=== PATIENT | male | born 1970 | race African-American/Black ===

== ENCOUNTER 2017-09-28 14:28 | Inpatient (IN) | payer BC ==
[~2017-09-28] VITALS: Ht 185.4 cm; Wt 113.2 kg
[2017-09-28 14:57] LABS: HEMATOCRIT 48.7 % (38.0-50.0); HEMOGLOBIN 17.3 G/DL (12.5-16.6); MCHC 35.5 G/DL (30.0-36.0); PLATELET COUNT 244 K/uL (156-360); RBC DIS.WIDTH-CV 12.1 % (11.8-14.6); RBC DIS.WIDTH-SD 39.8 % (39-53); RED BLOOD COUNT 5.41 M/uL (4.00-5.50); WHITE BLOOD COUNT 6.5 K/uL (4.1-10.2)
[2017-09-28 15:24] LABS: TROP-I INTERPRETATION NEGATIVE; TROPONIN-I < 0.01 ng/mL (0.0-0.30)
[2017-09-28 15:30] LABS: CHLORIDE 99 mEq/L (99-109); POTASSIUM 4.3 mEq/L (3.7-5.4); SODIUM 135 mEq/L (136-147)
[2017-09-28 15:31] LABS: GLUCOSE 106 mg/dL (70-99)
[2017-09-28 15:36] LABS: UREA NITROGEN (BUN) 15 mg/dL (9-23)
[2017-09-28 15:42] LABS: GFR ESTIMATE (CALCULATED) > 59 mL/min/ (58.99-99999)
[2017-09-28 15:44] LABS: CK-MB 14.4 ng/mL (0.0-4.9)
[2017-09-28 16:31] LABS: APPEARANCE CLEAR ((CLEAR)); BILIRUBIN NEGATIVE; BLOOD LARGE; COLOR YELLOW ((YELLOW)); GLUCOSE (STRIP) NEGATIVE; KETONES NEGATIVE; LEUKOCYTES NEGATIVE; NITRITE NEGATIVE; PROTEIN (STRIP) 100; SPECIFIC GRAVITY 1.006 (1.000-1.030); UROBILINOGEN 0.2 MG/DL (0.2-1.0)
[2017-09-28 16:37] LABS: BACTERIA NONE SEEN /HPF; EPITHELIAL CELLS NONE SEEN /HPF; MUCUS NONE SEEN /LPF; RED BLOOD CELLS 0-5 /HPF (0-5); WHITE BLOOD CELLS 0-5 /HPF (0-5)
[2017-09-28 19:09] LABS: CREATINE KINASE 91930 IU/L (1-294)
[2017-09-28 19:27] LABS: TOTAL CK 91930 IU/L (1-294)
[2017-09-28] MEDS ORDERED: ADVIL,NUPRIN,M200 MG PO (19:55)
[2017-09-28 23:19] VITALS: BP 131/68
[2017-09-29 03:38] VITALS: BP 126/63
[2017-09-29 05:42] LABS: HEMATOCRIT 42.8 % (38.0-50.0); MCH 30.6 PG (29.0-34.0); MCHC 33.4 G/DL (30.0-36.0); MCV 91.5 FL (86-99); PLATELET COUNT 234 K/uL (156-360); RBC DIS.WIDTH-CV 12.2 % (11.8-14.6); RBC DIS.WIDTH-SD 41.3 % (39-53); RED BLOOD COUNT 4.68 M/uL (4.00-5.50); WHITE BLOOD COUNT 6.4 K/uL (4.1-10.2)
[2017-09-29 05:44] LABS: HEMOGLOBIN 14.3 G/DL (12.5-16.6)
[2017-09-29 07:00] LABS: CREATINE KINASE > 100000 IU/L (1-294)
[2017-09-29 07:02] LABS: CHLORIDE 105 MEQ/L (99-109); CREATININE 1.1 MG/DL (0.6-1.3); GFR ESTIMATE (CALCULATED) > 59 mL/min/ (58.99-99999); GLUCOSE 96 mg/dL (70-99); POTASSIUM 4.1 MEQ/L (3.7-5.4); SODIUM 138 MEQ/L (136-147); UREA NITROGEN (BUN) 16 mg/dL (9-23)
[2017-09-29 09:01] VITALS: BP 122/61
[2017-09-29 11:43] VITALS: BP 133/63
[2017-09-29 15:21] VITALS: BP 121/59
[2017-09-29 19:52] VITALS: BP 122/58
[2017-09-29 23:43] VITALS: BP 124/68
[2017-09-30] VITALS (7 sets, daily range): BP systolic 93–129; BP diastolic 52–68
[2017-09-30 06:17] LABS: BASOPHIL (%) 0.6 % (0-1); EOSINOPHIL (%) 1.6 % (0-5); EOSINOPHIL COUNT 0.1 K/uL (0-0.3); HEMATOCRIT 39.8 % (38.0-50.0); HEMOGLOBIN 13.5 G/DL (12.5-16.6); IMMATURE GRANULOCYTE (%) 0.4 % (0.0-0.7); LYMPHOCYTE (%) 25.7 % (15-42); LYMPHOCYTE COUNT 1.3 K/uL (1.0-2.8); MCH 31.6 PG (29.0-34.0); MCHC 33.9 G/DL (30.0-36.0); MCV 93.2 FL (86-99); MONOCYTE (%) 5.5 % (3-12); MONOCYTE COUNT 0.3 K/uL (0-0.8); NEUTROPHIL (%) 66.2 % (45-76); NEUTROPHIL COUNT 3.4 K/uL (1.8-6.4); PLATELET COUNT 211 K/uL (156-360); RBC DIS.WIDTH-CV 12.3 % (11.8-14.6); RBC DIS.WIDTH-SD 42.4 % (39-53); RED BLOOD COUNT 4.27 M/uL (4.00-5.50); WHITE BLOOD COUNT 5.1 K/uL (4.1-10.2)
[2017-09-30 06:38] LABS: ALBUMIN 2.9 G/DL (3.2-4.8); ALKALINE PHOSPHATASE 46 IU/L (3-129); ALT (GPT) 331 IU/L (3-49); AST (GOT) 850 IU/L (2-34); CHLORIDE 109 MEQ/L (99-109); CREATININE 1.1 MG/DL (0.6-1.3); GFR ESTIMATE (CALCULATED) > 59 mL/min/ (58.99-99999); GLUCOSE 96 mg/dL (70-99); POTASSIUM 4.4 MEQ/L (3.7-5.4); SODIUM 140 MEQ/L (136-147); TOTAL BILIRUBIN 0.3 MG/DL (0.0-1.0); TOTAL PROTEIN 4.9 G/DL (6.4-8.3); UREA NITROGEN (BUN) 11 mg/dL (9-23)
[2017-09-30 08:48] LABS: CREATINE KINASE > 100000 IU/L (1-294)
[2017-09-30 11:52] LABS: HEPATITIS B SURFACE ANTIGEN Nonreactive
[2017-09-30 11:53] LABS: HEPATITIS C ANTIBODY Nonreactive
[2017-09-30 11:54] LABS: ANTI-HEPATITIS A VIRUS (IGM) Nonreactive
[2017-09-30 11:55] LABS: ANTI-HEPATITIS B CORE (IGM) Nonreactive
[2017-10-01 06:16] LABS: HEMATOCRIT 41.1 % (38.0-50.0); HEMOGLOBIN 13.7 G/DL (12.5-16.6); MCH 31.1 PG (29.0-34.0); MCHC 33.3 G/DL (30.0-36.0); MCV 93.2 FL (86-99); PLATELET COUNT 217 K/uL (156-360); RBC DIS.WIDTH-CV 12.1 % (11.8-14.6); RBC DIS.WIDTH-SD 41.9 % (39-53); RED BLOOD COUNT 4.41 M/uL (4.00-5.50); WHITE BLOOD COUNT 5.5 K/uL (4.1-10.2)
[2017-10-01 06:38] LABS: ALBUMIN 2.8 G/DL (3.2-4.8); ALKALINE PHOSPHATASE 45 IU/L (3-129); ALT (GPT) 314 IU/L (3-49); AST (GOT) 679 IU/L (2-34); CHLORIDE 105 MEQ/L (99-109); CREATININE 1.2 MG/DL (0.6-1.3); GFR ESTIMATE (CALCULATED) > 59 mL/min/ (58.99-99999); GLUCOSE 87 mg/dL (70-99); POTASSIUM 4.5 MEQ/L (3.7-5.4); SODIUM 140 MEQ/L (136-147); UREA NITROGEN (BUN) 13 mg/dL (9-23)
[2017-10-01 06:41] LABS: TOTAL BILIRUBIN 0.4 MG/DL (0.0-1.0)
[2017-10-01 06:42] LABS: INTER. NORMALIZED RATIO 0.9
[2017-10-01 11:07] LABS: HDL CHOLESTEROL 35 MG/DL (Desirable>=40); LDL CHOLESTEROL 110 mg/dL (Desirable<100); NON-HDL CHOLESTEROL 128 mg/dL (Desirable<160); TOTAL CHOLESTEROL 163 mg/dL (Desirable<200); TRIGLYCERIDES 92 MG/DL (Normal: <150)
[2017-10-01 11:09] LABS: CREATINE KINASE 60900 IU/L (1-294)
[2017-10-01 14:20] VITALS: BP 123/66
[2017-10-01 15:49] VITALS: BP 141/68
[2017-10-01 15:54] VITALS: BP 144/67
[2017-10-01 20:25] VITALS: BP 142/70
[2017-10-02 00:19] VITALS: BP 115/58
[2017-10-02 07:06] LABS: ALBUMIN 2.8 G/DL (3.2-4.8); ALKALINE PHOSPHATASE 40 IU/L (3-129); ALT (GPT) 284 IU/L (3-49); AST (GOT) 518 IU/L (2-34); DIRECT BILIRUBIN 0.1 mg/dL (0.0-0.3); TOTAL PROTEIN 4.9 G/DL (6.4-8.3)
[2017-10-02 07:08] LABS: TOTAL BILIRUBIN 0.3 MG/DL (0.0-1.0)
[2017-10-02 10:04] LABS: CREATINE KINASE 38800 IU/L (1-294)
[2017-10-02 11:17] VITALS: BP 118/60
[2017-10-02 15:47] VITALS: BP 116/62
[2017-10-02 23:23] VITALS: BP 123/64
[2017-10-03 06:39] LABS: ALBUMIN 2.7 G/DL (3.2-4.8); ALKALINE PHOSPHATASE 41 IU/L (3-129); ALT (GPT) 239 IU/L (3-49); AST (GOT) 347 IU/L (2-34); CHLORIDE 106 MEQ/L (99-109); CREATININE 1.5 MG/DL (0.6-1.3); DIRECT BILIRUBIN 0.1 mg/dL (0.0-0.3); GFR ESTIMATE (CALCULATED) > 59 mL/min/ (58.99-99999); GLUCOSE 89 mg/dL (70-99); POTASSIUM 3.8 MEQ/L (3.7-5.4); SODIUM 139 MEQ/L (136-147); TOTAL BILIRUBIN 0.3 MG/DL (0.0-1.0); TOTAL PROTEIN 4.9 G/DL (6.4-8.3); UREA NITROGEN (BUN) 17 mg/dL (9-23)
[2017-10-03 07:41] LABS: CREATINE KINASE 24950 IU/L (1-294)
[2017-10-03 07:46] VITALS: BP 117/58
== END 2017-10-03 12:13 | disposition home or self-care (01) | DRG 566 ==
LOC: EME 14:28 → 3EAST 21:41 → EDOF 21:41 → ENRESERV 21:47 → EDOF 22:48 → 3EAST 23:15
PROVIDERS: Emergency Medicine; Hospitalist; Internal Medicine Gastroenterology; Physician Assistant
DX: T79.6XXA Traumatic ischemia of muscle, initial encounter (principal); X50.9XXA Other and unspecified overexertion or strenuous movements or postures, initial encounter; Y93.A1 Activity, exercise machines primarily for cardiorespiratory conditioning; Y93.B2 Activity, push-ups, pull-ups, sit-ups; Y93.B3 Activity, free weights; R94.5 Abnormal results of liver function studies; N62 Hypertrophy of breast; Z87.891 Personal history of nicotine dependence
CPT/HCPCS: 73200; 76705; 80048; 80053; 80061; 80074; 80076; 81003; 82550; 82550 91; 82553; 84484; 85025; 85027; 85610; 93005; 99281; 99284; J7030